=== PATIENT | male | born 1995 | race Two or more races ===

== ENCOUNTER 2019-12-05 18:28 | Emergency (ER) | payer MEDICAID ==
[~2019-12-05] VITALS: Ht 185.4 cm; Wt 113.5 kg
[2019-12-05 18:30] VITALS: BP 123/78
[2019-12-05] MEDS ORDERED: OXYcodone/APAP 10/325MG TABLET ONE (18:52)
--- NOTE | 2019-12-05 18:53 | NUR ---
REPORT GIVEN TO ANGIE BALL
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
[2019-12-05] MEDS ORDERED: OXYcodone/APAP 10/325MG TABLET PO ONE (19:00)
--- NOTE | 2019-12-05 19:00 | NUR ---
POC: patient leg to be cleaned and rebandaged/splinted.
[2019-12-05] MEDS ORDERED: NEOSPORIN OINT. PKT 1 PACKET ONE (19:04)
== END 2019-12-05 19:50 | disposition home or self-care (01) ==
LOC: ED 19:18
DX: S81.831A Puncture wound without foreign body, right lower leg, initial encounter (principal); F17.210 Nicotine dependence, cigarettes, uncomplicated; W34.00XA Accidental discharge from unspecified firearms or gun, initial encounter; Y93.89 Activity, other specified; Y92.89 Other specified places as the place of occurrence of the external cause; Y99.8 Other external cause status
CPT/HCPCS: 29515; 99283; 99406

== ENCOUNTER 2020-11-03 20:59 | Emergency (ER) | payer MEDICAID, OTHER ==
--- NOTE | 2020-11-03 22:10 | NUR ---
pt to room from lobby
[2020-11-03] MEDS ORDERED: KETOROLAC 30 MG/1 ML IM ONE (23:00)
[2020-11-03] MEDS ORDERED: KETOROLAC 30 MG/1 ML ONE (23:12)
[2020-11-03 23:32] VITALS: BP 140/90
--- NOTE | 2020-11-03 23:33 | NUR ---
PT UPDATED BY ROMIE COLEMAN. PT READY FOR DC.
== END 2020-11-03 23:34 | disposition home or self-care (01) ==
LOC: ED 23:28
DX: S20.212A Contusion of left front wall of thorax, initial encounter (principal); W22.8XXA Striking against or struck by other objects, initial encounter; Y93.89 Activity, other specified; Y92.89 Other specified places as the place of occurrence of the external cause; Y99.8 Other external cause status
CPT/HCPCS: 71101; 96372; 99283; J1885

== ENCOUNTER 2020-11-07 19:45 | Emergency (ER) | payer SELFPAY ==
[~2020-11-07] VITALS: Ht 185.4 cm; Wt 126.6 kg
[2020-11-07 19:59] VITALS: BP 138/90
--- NOTE | 2020-11-07 21:21 | NUR ---
REGISTRATION MADE OBSERVER HELPER AWARE THAT PATIENT LEFT FROM LOBBY PRIOR TO BEING SEEN
== END 2020-11-07 21:34 | disposition left against medical advice (07) ==
LOC: ED 20:00
DX: R05 Cough (principal); Z53.21 Procedure and treatment not carried out due to patient leaving prior to being seen by health care provider